=== PATIENT | female | born 1955 | race Caucasian/White ===

== ENCOUNTER 2024-06-20 12:14 | Emergency (ER) | payer OTHER ==
[~2024-06-20] VITALS: Ht 160 cm; Wt 62.0 kg
[2024-06-20 14:13] VITALS: BP 145/80
[2024-06-20 14:29] LABS: BASO% 0.7 % (0-3); EOS% 0.6 % (0-8); HEMOGLOBIN 12.1 g/dl (12.0-16.0); IMMATURE GRANULOCYTES 0.1 % (0.0-5.0); LYMPH% 20.1 % (15-41); MEAN CELL VOLUME 98.4 fL CALC (80.0-100.0); MEAN CORPUSCULAR HGB 31.3 pG CALC (26.0-32.0); MEAN CORPUSCULAR HGB CONC 31.8 g/dL CAL (32.0-36.0); NEUT# 5.2 thou/uL (2.00-7.15); NEUT% 72.5 % (42-76); RED BLOOD COUNT 3.86 mill/uL (4.20-5.60); RED CELL DISTRI WIDTH 14.9 % (11.5-15.5)
[2024-06-20 14:30] VITALS: BP 162/76
[2024-06-20 14:32] LABS: URINE BILIRUBIN - DIPSTICK Negative (NEGATIVE); URINE BLOOD DIPSTICK Negative (NEGATIVE); URINE GLUCOSE - DIPSTICK Negative (NEGATIVE); URINE KETONE Negative (NEGATIVE); URINE LEUK ESTERASE Negative (NEGATIVE); URINE NITRITE - DIPSTICK Negative (Negative); URINE PH 6.5 (4.5-8.0); URINE PROTEIN - DIPSTICK Negative (NEG-TRACE); URINE UROBILINOGEN - DIPSTICK 0.2 E.U./dL (0.2)
[2024-06-20 14:33] LABS: URINE COLOR Yellow
[2024-06-20 14:41] LABS: ALBUMIN 4.2 g/dL (3.2-5.0); ALKALINE PHOSPHATASE 60 u/l (38-126); ANION GAP 10 (6-22 (CALC)); BILIRUBIN, TOTAL 0.6 mg/dL (0.02-1.3); BUN 11 mg/dL (8-23); BUN/CREATININE RATIO 23 (12-20 (CALC)); CARBON DIOXIDE 28 mmol/l (22-30); CHLORIDE 105 mmol/l (95-108); CREATININE 0.5 mg/dL (0.5-1.0); ESTIMATED GFR 103 ML/MIN (>=90 (CALC)); MAGNESIUM 1.9 mg/dL (1.6-2.3); SGOT/AST 31 u/l (9-36); SODIUM 138 mmol/l (137-146); TOTAL PROTEIN 6.9 g/dL (6.3-8.2)
[2024-06-20 15:32] VITALS: BP 163/108
[2024-06-20] MEDS ORDERED: MECLIZINE HCL 25 MG/TAB PO ONE (15:40)
[2024-06-20 16:00] VITALS: BP 161/85
[2024-06-20] MEDS ORDERED: MECLIZINE 2525 MG PO (16:22)
[2024-06-20 16:31] VITALS: BP 157/77
[2024-06-20 16:37] VITALS: BP 157/77
== END 2024-06-20 16:39 | disposition home or self-care (01) | DRG 149 ==
LOC: ED 12:14
PROVIDERS: Family Medicine; Nurse Practitioner
DX: R42 Dizziness and giddiness (principal); R53.1 Weakness